=== PATIENT | female | born 1980 | race Two or more races ===

== ENCOUNTER 2016-05-24 08:21 | Emergency (ER) | payer OTHER ==
[2016-05-24 08:47] VITALS: BP 114/73; PULSE 87; RESP 16; TEMP 98.5; O2SAT 96
--- NOTE | 2016-05-24 08:57 | UCPHY ---
H & P Time Seen by Provider: 05/24/16 08:43 Patient Type: New HPI/ROS: This patient has a few days of nasal congestion followed by right ear pressure of moderate intensity that did not respond [id number] decongestants. She reports associated vertigo that she states is mild to moderate with head movement in resolves when her head is still. She notes no other exacerbating or alleviating factors for her symptoms. ROS: No fevers. No headache. No numbness tingling or focal weakness. She does have diminished hearing in the affected right ear and 7 point ROS is otherwise negative Past Medical/Surgical History: Otherwise healthy Smoking Status: Never smoked Physical Exam: Physical Exam Vital signs are normal. General: No acute distress HEENT: Nose: Swollen nasal mucosa with clear discharge. Ears: External canals clear right TM is clear with a clear effusion left external canal and TM are clear oropharynx is clear with no dysphonia or erythema Eyes: Pupils equal and react to light. Extraocular motions are intact. Lungs: No respiratory distress. Cardiac: Regular rate and rhythm with no murmur gallop or rub Skin: No rash or pallor. Neuro: GCS of 15. Cranial nerves 2-12 grossly intact. Cerebellar exam is normal instructed by symmetric rapid hand movements bilaterally. Patient does have vertigo with rapid head movement. no sensorimotor deficits. Initial differential diagnosis: URI with serous otitis, benign positional vertigo, Meniere's disease no clinical findings to suggest central vertigo. Constitutional: Initial Vital Signs Temperature (C) 36.9 C 05/24/16 08:44 Heart Rate 87 05/24/16 08:44 Respiratory Rate 16 05/24/16 08:44 Blood Pressure 114/73 05/24/16 08:44 O2 Sat (%) 96 05/24/16 08:44 O2 Delivery Mode Room Air Allergies/Adverse Reactions: Sulfa (Sulfonamide Antibiotics) Allergy (Verified 05/24/16 08:47) Home Medications: Medication Instructions Recorded Fluticasone Nasal [Flonase Nasal 2 sprays NASAL DAILY #1 mdi 05/24/16 [place] (RX)] Meclizine HCl [Meclizine HCl 25 mg 25 mg PO TID PRN #20 tab 05/24/16 (RX,OTC)] Departure - Departure Disposition: Home, Routine, Self-Care Clinical Impression: Acute serous otitis media of right ear Qualifiers: Recurrence: not specified as recurrent Qualifier Code: (H65.01) Acute serous otitis media, right ear Benign positional vertigo Qualifiers: Laterality: unspecified laterality Qualifier Code: (H81.10) Benign paroxysmal vertigo, unspecified ear Instructions: Serous Otitis Media (ED) Additional Instructions: Dx: Serous otitis 2. Benign positional vertigo Plan: Humidifier Flonase steroid nasal spray Meclizine for vertigo as needed If you're not improving over the next 2-3 days of treatment plan, then call Dr. Browne the Ear Nose Throat physician for further evaluation Return here to the emergency department if he has any significant worsening of your symptoms despite the treatment plan Referrals: Noam Zabala DO [Primary Care Provider] - As per Instructions Jaren Browne MD [Medical Doctor] - As per Instructions Prescriptions: Fluticasone Nasal [Flonase Nasal [place] (RX)] 2 sprays NASAL DAILY #1 mdi Meclizine HCl [Meclizine HCl 25 mg (RX,OTC)] 25 mg PO TID PRN #20 tab PRN Reason: vertigo - PQRS PQRS Measurement: NA
== END 2016-05-24 09:20 | disposition home or self-care (01) ==
LOC: CED 08:21
DX: H65.01 Acute serous otitis media, right ear (principal); H81.10 Benign paroxysmal vertigo, unspecified ear
CPT/HCPCS: 99203-PO; G0463-PO